=== PATIENT | female | born 1965 | race Caucasian/White ===

== ENCOUNTER 2017-02-17 10:42 | Emergency (ER) | payer SELFPAY ==
[~2017-02-17] VITALS: Ht 154.9 cm; Wt 77.2 kg
[~2017-02-17 10:42] MED LIST: AMLO5TAB4 PO; LISI-167 PO
[2017-02-17 10:48] VITALS: BP 138/93
[2017-02-17] MEDS ORDERED: KETOROLAC 30 MG/1 ML ONE (11:26)
[2017-02-17] MEDS ORDERED: HYDROcodone/APAP 5/325 TABLET ONE (11:26)
[2017-02-17] MEDS ORDERED: KETOROLAC 30 MG/1 ML IM ONE (11:30)
[2017-02-17] MEDS ORDERED: HYDROcodone/APAP 5/325 TABLET PO ONE (11:30)
== END 2017-02-17 13:01 | disposition home or self-care (01) ==
LOC: ED 12:55
DX: M17.11 Unilateral primary osteoarthritis, right knee (principal); M25.461 Effusion, right knee; I10 Essential (primary) hypertension; F17.210 Nicotine dependence, cigarettes, uncomplicated
CPT/HCPCS: 93971; 96372; 99284; J1885

== ENCOUNTER 2017-09-13 08:36 | Emergency (ER) | payer SELFPAY ==
[~2017-09-13] VITALS: Ht 154.9 cm; Wt 93.8 kg
[2017-09-13 08:44] VITALS: BP 123/86
== END 2017-09-13 09:42 | disposition left against medical advice (07) ==
LOC: ED 09:36
DX: M54.5 Low back pain (principal); Z53.21 Procedure and treatment not carried out due to patient leaving prior to being seen by health care provider

== ENCOUNTER 2017-09-13 12:46 | Emergency (ER) | payer SELFPAY ==
[~2017-09-13] VITALS: Ht 154.9 cm; Wt 94.1 kg
[2017-09-13] MEDS ORDERED: KETOROLAC 30 MG/1 ML ONE (13:40)
[2017-09-13] MEDS ORDERED: KETOROLAC 30 MG/1 ML IM ONE (14:00)
[2017-09-13] MEDS ORDERED: KETOROLAC 60 MG/2 ML IM ONE (14:00)
[2017-09-13 15:31] VITALS: BP 156/96
== END 2017-09-13 16:43 | disposition home or self-care (01) ==
LOC: ED 15:40
DX: M17.12 Unilateral primary osteoarthritis, left knee (principal); M54.42 Lumbago with sciatica, left side; I10 Essential (primary) hypertension
CPT/HCPCS: 72110; 73564; 93971; 96372; 99284; J1885

== ENCOUNTER 2017-11-07 01:34 | Emergency (ER) | payer SELFPAY ==
[~2017-11-07] VITALS: Ht 154.9 cm; Wt 75.0 kg
[2017-11-07] MEDS ORDERED: KETOROLAC 30 MG/1 ML IM ONE (02:00)
[2017-11-07 02:07] VITALS: BP 132/87
[2017-11-07] MEDS ORDERED: KETOROLAC 30 MG/1 ML ONE (02:11)
== END 2017-11-07 04:06 | disposition home or self-care (01) ==
LOC: ED 02:13
DX: G89.11 Acute pain due to trauma (principal); M79.604 Pain in right leg; F43.10 Post-traumatic stress disorder, unspecified; W18.30XA Fall on same level, unspecified, initial encounter; Y93.89 Activity, other specified; Y99.8 Other external cause status; Y92.89 Other specified places as the place of occurrence of the external cause
CPT/HCPCS: 73564; 96372; 99284; J1885

== ENCOUNTER 2018-06-05 11:36 | Emergency (ER) | payer SELFPAY ==
[~2018-06-05] VITALS: Ht 154.9 cm; Wt 90.9 kg
[2018-06-05 11:50] VITALS: BP 140/85
== END 2018-06-05 12:58 | disposition left against medical advice (07) ==
LOC: ED 12:52
DX: R07.9 Chest pain, unspecified (principal); Z53.21 Procedure and treatment not carried out due to patient leaving prior to being seen by health care provider
CPT/HCPCS: 93005; 99281

== ENCOUNTER 2018-07-22 18:25 | Emergency (ER) | payer MEDICAID, OTHER ==
[~2018-07-22] VITALS: Ht 154.9 cm; Wt 88.8 kg
[2018-07-22 18:26] VITALS: BP 172/115
[2018-07-22] MEDS ORDERED: KETOROLAC 60 MG/2 ML IVPush ONE (19:00)
[2018-07-22] MEDS ORDERED: HYDROmorphone 1 MG/ML, 1ML IV ONE (19:00)
[2018-07-22] MEDS ORDERED: methylPREDNISolone SOD SUCC 125 MG/2 ML IVPush ONE (19:00)
== END 2018-07-22 19:33 | disposition left against medical advice (07) ==
LOC: ED 18:55
DX: M54.42 Lumbago with sciatica, left side (principal); N83.202 Unspecified ovarian cyst, left side; Z88.0 Allergy status to penicillin; I10 Essential (primary) hypertension
CPT/HCPCS: 72131; 74176; 99284

== ENCOUNTER 2019-09-18 22:53 | Emergency (ER) | payer OTHER ==
[~2019-09-18] VITALS: Ht 154.9 cm; Wt 105.3 kg
--- NOTE | 2019-09-18 23:19 | NUR ---
COUGH X 3 WEEKS. PT REPORTS SWELLING IN LEGS, STOMACH "FEELS BIGGER"
--- NOTE | 2019-09-18 23:19 | NUR ---
ER MD IN TO ASSESS PT
[2019-09-18] MEDS ORDERED: ALBUTEROL/IPRATROPIUM 2.5MG/0.5MG, 3 ML ONE (23:56)
[2019-09-19] MEDS ORDERED: ALBUTEROL SULFATE 2.5 MG/3 ML NPPB ONE
[2019-09-19 00:01] LABS: BASOPHILS # (AUTO) 0.05 x10^3/uL (0-0.1); BASOPHILS % (AUTO) 1 % (0-1); EOSINOPHILS # (AUTO) 0.29 x10^3/uL (0-0.4); EOSINOPHILS % (AUTO) 4 % (1-7); LYMPHOCYTES # (AUTO) 1.51 x10^3/uL (1-3.4); LYMPHOCYTES % (AUTO) 18 % (22-44); MD NO; MEAN CORPUSCULAR HEMOGLOBIN 29.9 pg (27.0-34.8); MEAN CORPUSCULAR HGB CONC 32.3 g/dL (32.4-35.8); MEAN CORPUSCULAR VOLUME 92.5 fL (80-100); MEAN PLATELET VOLUME 7.7 fL (7.4-10.4); MONOCYTES # (AUTO) 0.88 x10^3/uL (0.2-0.8); MONOCYTES % (AUTO) 11 % (2-9); NEUTROPHILS # (AUTO) 5.54 x10^3/uL (1.8-6.8); NEUTROPHILS % (AUTO) 67 % (42-75); PLATELET COUNT 343 x10^3/uL (130-400); RED BLOOD COUNT 4.35 x10^6/uL (3.82-5.3); RED CELL DISTRIBUTION WIDTH 13.8 % (9.6-15.2)
[2019-09-19] MEDS ORDERED: ALBUTEROL SULFATE 2.5 MG/3 ML ONE (00:04)
--- NOTE | 2019-09-19 00:09 | NUR ---
RT AND XRAY COMPLETED. PT MEDICATED PER EMAR. BLANKET PROVIDED. CALL LIGHT WITHIN REACH
[2019-09-19 00:14] LABS: ANION GAP 6 mmol/L (5-15); CALCIUM 8.9 mg/dL (8.5-10.1); CHLORIDE 110 mmol/L (98-107)
[2019-09-19 00:19] LABS: ALANINE AMINOTRANSFERASE 67 U/L (12-78); ALBUMIN 3.1 g/dL (3.4-5.0); ALKALINE PHOSPHATASE 135 U/L (45-117); BILIRUBIN,TOTAL 0.2 mg/dL (0.2-1.0); CREATININE 0.71 mg/dL (0.55-1.02); TOTAL PROTEIN 6.9 g/dL (6.4-8.2); TROPONIN I < 0.015 ng/mL (0.000-0.045)
[2019-09-19 00:53] VITALS: BP 149/95
== END 2019-09-19 01:00 | disposition home or self-care (01) ==
LOC: ED 09-19 00:54
DX: J44.1 Chronic obstructive pulmonary disease with (acute) exacerbation (principal); R05 Cough; F43.10 Post-traumatic stress disorder, unspecified; M19.90 Unspecified osteoarthritis, unspecified site; F17.200 Nicotine dependence, unspecified, uncomplicated; Z90.710 Acquired absence of both cervix and uterus; I10 Essential (primary) hypertension
CPT/HCPCS: 36415; 71045; 80053; 83880; 84443; 84484; 85025; 93005; 94640; 99284; J7512; J7613